=== PATIENT | female | born 1960 | race Caucasian/White ===

== ENCOUNTER 2019-12-20 14:00 | Inpatient (IN) | payer OTHER ==
[~2019-12-20] VITALS: Ht 162.6 cm; Wt 137.8 kg
[~2019-12-20 14:00] MED LIST: ASPI81EC PO; CALCIT950 PO; CHOL10002 PO; FISH1000 PO; MULVITMIND PO; NAPR500 PO; Norco 5-325 Ta1 EACH PO; ZINC15 PO
[2019-12-20 14:15] LABS: BASOPHILS ABSOLUTE AUTO 0.04 K/mm3 (0.00-0.23); BASOPHILS PERCENT AUTO 1 % (0-2); EOSINOPHILS ABSOLUTE AUTO 0.16 K/mm3 (0.00-0.68); EOSINOPHILS PERCENT AUTO 2 % (0-6); Hemoglobin 13.2 g/dL (11.5-16.0); IMMATURE GRAN ABSOLUTE AUTO 0.03 K/mm3 (0.00-0.10); IMMATURE GRAN PERCENT AUTO 0 % (0-1); LYMPHOCYTES ABSOLUTE AUTO 1.83 K/mm3 (0.84-5.20); LYMPHOCYTES PERCENT AUTO 22 % (21-46); MONOCYTES ABSOLUTE AUTO 0.56 K/mm3 (0.16-1.47); MONOCYTES PERCENT AUTO 7 % (4-13); Mean Corpuscular HGB 29.4 pg (26.0-34.0); Mean Corpuscular HGB Conc 31.4 g/dL (31.5-36.5); Mean Corpuscular Volume 94 fL (80-100); Mean Platelet Volume 10.5 fL (9.1-12.4); NEUTROPHILS ABSOLUTE AUTO 5.56 K/mm3 (1.96-9.15); NEUTROPHILS PERCENT AUTO 68 % (41-73); Platelet Count 254 K/mm3 (150-400); RDW Coefficient Variation 12.4 % (11.7-14.2); RDW Standard Deviation 42.5 fL (35.1-46.3); Red Blood Cell Count 4.49 M/mm3 (3.80-5.20); White Blood Cell Count 8.18 K/mm3 (4.00-11.30)
[2019-12-20 14:36] LABS: Alanine Aminotransfer (ALT/SGP 47 U/L (12-78); Albumin, Blood 3.3 g/dL (3.4-5.0); Albumin/Globulin Ratio 0.9 (0.8-1.8); Alk Phos 77 U/L (50-136); Anion Gap 5 mmol/L (6-16); Aspartate Aminotrans (AST/SGOT 40 U/L (12-37); Bilirubin, Total 0.6 mg/dL (0.1-1.0); Blood Urea Nitrogen 12 mg/dL (8-24); Bun/Creatinine Ratio 15.4 (12.0-20.0); CO2, Blood 30 mmol/L (21-32); Calcium, Blood 8.7 mg/dL (8.5-10.1); Chloride, Blood 107 mmol/L (98-108); Creatinine, Blood 0.78 mg/dL (0.40-1.00); Globulin, Blood 3.6 g/dL (2.2-4.0); Glomerular Filtration Rate >60 (60-); Glucose, Blood 98 mg/dL (70-99); Sodium, Blood 142 mmol/L (136-145); Total Protein, Blood 6.9 g/dL (6.4-8.2); Troponin I 0.309 ng/mL (0.000-0.040)
[2019-12-20 15:50] LABS: International Normalized Ratio 1.05; Prothrombin Time Results 11.2 Sec (9.7-11.5)
--- NOTE | 2019-12-20 19:00 | NUR ---
ASSUMED CARE PT TRANSPORTED TO PCU FROM ED, RECEIVED REPORT FROM JODY SANDY. ASSUMED CARE OF PT. SITTING UP ON EDGE OF BED IN NO ACUTE DISTRESS. DENIES CP, PRESSURE, SOB AT THIS TIME. VS STABLE. CALL LIGHT AND POSSESSIONS IN REACH, BED IN LOW POSITION. REMINDED PT TO CALL WITH NEEDS. WILL CONTINUE TO MONITOR.
[2019-12-20] MEDS ORDERED: IBUP400 PO (19:01)
[2019-12-20] MEDS ORDERED: Loratadine10 MG PO (19:01)
[2019-12-21 05:45] LABS: BASOPHILS ABSOLUTE AUTO 0.03 K/mm3 (0.00-0.23); BASOPHILS PERCENT AUTO 0 % (0-2); EOSINOPHILS ABSOLUTE AUTO 0.04 K/mm3 (0.00-0.68); EOSINOPHILS PERCENT AUTO 1 % (0-6); Hematocrit 38.8 % (33.0-51.0); Hemoglobin 12.3 g/dL (11.5-16.0); IMMATURE GRAN ABSOLUTE AUTO 0.03 K/mm3 (0.00-0.10); IMMATURE GRAN PERCENT AUTO 0 % (0-1); LYMPHOCYTES ABSOLUTE AUTO 1.55 K/mm3 (0.84-5.20); LYMPHOCYTES PERCENT AUTO 18 % (21-46); MONOCYTES ABSOLUTE AUTO 0.59 K/mm3 (0.16-1.47); MONOCYTES PERCENT AUTO 7 % (4-13); Mean Corpuscular HGB 29.1 pg (26.0-34.0); Mean Corpuscular HGB Conc 31.7 g/dL (31.5-36.5); Mean Corpuscular Volume 92 fL (80-100); Mean Platelet Volume 10.5 fL (9.1-12.4); NEUTROPHILS ABSOLUTE AUTO 6.43 K/mm3 (1.96-9.15); NEUTROPHILS PERCENT AUTO 74 % (41-73); Platelet Count 236 K/mm3 (150-400); RDW Coefficient Variation 12.5 % (11.7-14.2); Red Blood Cell Count 4.22 M/mm3 (3.80-5.20); White Blood Cell Count 8.67 K/mm3 (4.00-11.30)
[2019-12-21 06:07] LABS: Alanine Aminotransfer (ALT/SGP 41 U/L (12-78); Albumin, Blood 3.3 g/dL (3.4-5.0); Albumin/Globulin Ratio 0.9 (0.8-1.8); Alk Phos 72 U/L (50-136); Anion Gap 6 mmol/L (6-16); Aspartate Aminotrans (AST/SGOT 23 U/L (12-37); Bilirubin, Total 0.9 mg/dL (0.1-1.0); Blood Urea Nitrogen 14 mg/dL (8-24); Bun/Creatinine Ratio 19.5 (12.0-20.0); CHOL/HDL RATIO 2.7; CO2, Blood 28 mmol/L (21-32); Calcium, Blood 8.4 mg/dL (8.5-10.1); Chloride, Blood 105 mmol/L (98-108); Cholesterol 132 mg/dL (50-200); Creatinine, Blood 0.72 mg/dL (0.40-1.00); Globulin, Blood 3.5 g/dL (2.2-4.0); Glomerular Filtration Rate >60 (60-); Glucose, Blood 114 mg/dL (70-99); HDL Cholesterol 49 mg/dL (>39); LDL/HDL RATIO 1.3; Low Density Lipoprotein Chol 63 mg/dL (0-110); Potassium, Blood 3.5 mmol/L (3.5-5.5); Sodium, Blood 139 mmol/L (136-145); Total Protein, Blood 6.8 g/dL (6.4-8.2); Triglycerides 102 mg/dL (30-160); Very Low Density Lipoprot Chol 20 mg/dL (6-32)
--- NOTE | 2019-12-21 07:10 | NUR ---
SHIFT SUMMARY: PT RESTING COMFORTABLY AT THIS TIME, WATCHING TV IN ROOM. WAS MONITORED EVERY 1-2 HOURS WITH NEEDS MET, DENIES ANY NEEDS AT THIS TIME. NO C/O CP, PRESSURE, SOB T/O NIGHT, VS STABLE. CALL LIGHT AND POSSESSIONS IN REACH, REPORT GIVEN TO JODY SANDY.
--- NOTE | 2019-12-21 07:59 | NUR ---
pt laying in bed awake a/ox3, pleasant and cooperative with care, follows commands well, denies any pain, states she never had pain, just sob, ean with activity, lungs are clear a bit dim in bases, resp even and unlabored, is on r/a, no cough noted, hrr, tele in place running sr with bbb, see strip, +1 edema which is down from last night, ppp+2, cap refill <3sec, vs stable, afebrile, iv sites are clear and patent, infusing hep gtt as ordered, btx4, abd flat soft nontender, voids without diff, skin c/w/d, maew, frank, call light in reach.
--- NOTE | 2019-12-21 13:04 | NUR ---
pt will be going to manager cardiac cath this afternoon. lab here to draw ptt. sitting up on side of the bed. call light in reach.
--- NOTE | 2019-12-21 13:12 | NUR ---
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
--- NOTE | 2019-12-21 14:10 | NUR ---
pt returned from labor mediator, arteries are clear, no intervention. tr band to right wrist, site is clear with arm board in place. removed ntg ointment. call light in reach.
--- NOTE | 2019-12-21 16:09 | NUR ---
kathleen johnson, tr band is clear, visitors in room. no complaits, states she feels ok, has been up to the br. call light in reach.
--- NOTE | 2019-12-21 18:03 | NUR ---
tr band is being deflated, no problems, pt doing well, sitting on the side of the bed. vs have been stable. call light in reach.
[2019-12-22 06:38] LABS: BASOPHILS ABSOLUTE AUTO 0.02 K/mm3 (0.00-0.23); BASOPHILS PERCENT AUTO 0 % (0-2); EOSINOPHILS ABSOLUTE AUTO 0.18 K/mm3 (0.00-0.68); EOSINOPHILS PERCENT AUTO 3 % (0-6); Hematocrit 36.5 % (33.0-51.0); Hemoglobin 11.5 g/dL (11.5-16.0); IMMATURE GRAN ABSOLUTE AUTO 0.02 K/mm3 (0.00-0.10); IMMATURE GRAN PERCENT AUTO 0 % (0-1); LYMPHOCYTES ABSOLUTE AUTO 1.81 K/mm3 (0.84-5.20); LYMPHOCYTES PERCENT AUTO 29 % (21-46); MONOCYTES ABSOLUTE AUTO 0.61 K/mm3 (0.16-1.47); MONOCYTES PERCENT AUTO 10 % (4-13); Mean Corpuscular HGB Conc 31.5 g/dL (31.5-36.5); Mean Corpuscular Volume 92 fL (80-100); Mean Platelet Volume 10.9 fL (9.1-12.4); NEUTROPHILS ABSOLUTE AUTO 3.64 K/mm3 (1.96-9.15); NEUTROPHILS PERCENT AUTO 58 % (41-73); Platelet Count 216 K/mm3 (150-400); RDW Coefficient Variation 12.7 % (11.7-14.2); RDW Standard Deviation 43.1 fL (35.1-46.3); Red Blood Cell Count 3.97 M/mm3 (3.80-5.20); White Blood Cell Count 6.28 K/mm3 (4.00-11.30)
[2019-12-22 06:57] LABS: Alanine Aminotransfer (ALT/SGP 29 U/L (12-78); Albumin/Globulin Ratio 0.9 (0.8-1.8); Alk Phos 65 U/L (50-136); Anion Gap 8 mmol/L (6-16); Aspartate Aminotrans (AST/SGOT 13 U/L (12-37); Bilirubin, Total 0.7 mg/dL (0.1-1.0); Blood Urea Nitrogen 16 mg/dL (8-24); Bun/Creatinine Ratio 19.5 (12.0-20.0); CO2, Blood 28 mmol/L (21-32); Calcium, Blood 8.4 mg/dL (8.5-10.1); Chloride, Blood 106 mmol/L (98-108); Creatinine, Blood 0.82 mg/dL (0.40-1.00); Globulin, Blood 3.2 g/dL (2.2-4.0); Glomerular Filtration Rate >60 (60-); Glucose, Blood 103 mg/dL (70-99); Magnesium, Blood 2.1 mg/dL (1.6-2.4); Potassium, Blood 3.5 mmol/L (3.5-5.5); Sodium, Blood 142 mmol/L (136-145); Total Protein, Blood 6.2 g/dL (6.4-8.2)
--- NOTE | 2019-12-22 07:31 | NUR ---
ASSUMED PATIENT CARE. PATIENT SITTING IN BED, CONVERSING COMFORTABLY WITH NURSING STAFF. NO SIGNS OF ACUTE DISTRESS, WCTM.
--- NOTE | 2019-12-22 07:33 | NUR ---
SHIFT SUMMARY PATIENT PLEASENT AND COOPERATIVE THROUGHOUT THE NIGHT. PATIENT'S TR BAND REMOVED AT APPROX 2030 LAST NIGHT. SITE SOFT WITH NO SIGNS OF BLEEDING, BRUISING OR HEMATOMA FORMATION NOTED LAST NIGHT. PATIENT DENIED ANY CHEST PAIN OR SOB LAST NIGHT. PATIENT APPEARED TO SLEEP WELL THROUGHOUT THE NIGHT. BEDSIDE REPORT GIVEN TO WILLIAM VERA.
--- NOTE | 2019-12-22 18:40 | NUR ---
REPORT CALLED TO [facility].
--- NOTE | 2019-12-22 19:15 | NUR ---
PATIENT TRANSFERRED TO RM. [id number].
--- NOTE | 2019-12-23 07:37 | NUR ---
12/23/19 0400 PT AWAKENED FOR AM VITALS. DENIES ANY S/S. RT WRIST SITE BENIGN WITH SPLINT. VITALS STABLE. SELF TO THE BATHROOM TO VOID.
--- NOTE | 2019-12-23 12:34 | NUR ---
SHIFT SUMMARY PT IS A/O X 4 WITH NO C/O PAIN. SHE DENIES AND CHEST PAIN OR SOB. MY HAS BEEN SELF AMBULATING TO THE TOILET. DRESSING REMAINS C.D.I. TO RIGHT WRIST. PLAN IS FOR PT TO STAY ONE MORE NIGHT AND THEN REASSESS IN THE MORNING FOR A POSSIBLE DC TOMORROW. PT IS PLEASANT AND ABLE TO MAKE HER NEEDS KNOWN. SHE CALLS FOR HELP APPROPRIATELY. CALL LIGHT IS IN REACH.
--- NOTE | 2019-12-23 18:14 | NUR ---
NO ACUTE CHANGES SINCE I ASSUMED CARE OF THIS PATIENT AT 1400. NO COMPLAINTS AND VSS
--- NOTE | 2019-12-24 06:23 | NUR ---
Rn summary: Patient remains alert and oriented and independant in room. Plans for discharge today if wt is stable. Pt has had no chest pain this shift. Tele was DC'd yesterday. Heart tones were regular. Breath sounds diminished arron bases otherwise clear. Pt is on room air. Pt does have 1-2 + edema in left lower extremity, pt did have it dependant, dusky in color. Pulses present. Pt has bruising to inner rt wrist from angiogram. AC IV was a little painful, flushed easily with no pain or leaking. Arm elevated on pillow and tylenol 650 mg given for discomfort. Pt felt maybe she had slept on it funny, Pt had good relief with tylenol. Is sleeping well this am. Call ight is in reach. Will continue to monitor.
[2019-12-24 06:33] LABS: Anion Gap 3 mmol/L (6-16); Blood Urea Nitrogen 22 mg/dL (8-24); Bun/Creatinine Ratio 24.1 (12.0-20.0); CO2, Blood 32 mmol/L (21-32); Calcium, Blood 8.9 mg/dL (8.5-10.1); Chloride, Blood 105 mmol/L (98-108); Creatinine, Blood 0.91 mg/dL (0.40-1.00); Glomerular Filtration Rate >60 (60-); Glucose, Blood 106 mg/dL (70-99); Potassium, Blood 4.4 mmol/L (3.5-5.5); Sodium, Blood 140 mmol/L (136-145)
[2019-12-24] MEDS ORDERED: ASPI81CH PO (11:17)
[2019-12-24] MEDS ORDERED: ACET325 PO (11:17)
[2019-12-24] MEDS ORDERED: ATOR80 PO (11:18)
[2019-12-24] MEDS ORDERED: HYDR10 PO (11:18)
[2019-12-24] MEDS ORDERED: LISI5 PO (11:20)
[2019-12-24] MEDS ORDERED: METO25ER PO (11:22)
[2019-12-24] MEDS ORDERED: ONDA4ODT MM (11:23)
[2019-12-24] MEDS ORDERED: Nitrostat0.3 MG SL (11:23)
[2019-12-24] MEDS ORDERED: SPIR25 PO (11:24)
[2019-12-24] MEDS ORDERED: TORSE20 PO (11:26)
--- NOTE | 2019-12-24 13:15 | NUR ---
PT DCD HOME. PT REQUESTED TO MAKE HER FOLLOW UP APPTS. MED REC FAXED TO PHARMACY ON FILE. ALL MEDS AND INSTRUCTIONS REVIEWED WITH PT AND ALL QUESTIONS ANSWERED. IV REMOVED WITH NO ISSUE. ALL PERSONAL BELONGINGS SENT WITH PT. PT STABLE UPON DC.
--- NOTE | 2019-12-24 16:57 | NUR ---
Per admit trigger, I attempted to meet with Heidi to offer information on ACP. She was d/c'd before I could see her.
== END 2019-12-24 13:26 | disposition home or self-care (01) | DRG 280 ==
LOC: ER 14:00 → ERHOLD 15:29 → PCU 15:29 → MEDS 12-22 19:06
PROVIDERS: Emergency Medicine; Hospitalist; Internal Medicine; Nurse Practitioner Acute Care; Pharmacist; ADMIT Internal Medicine
PROC: B211YZZ Fluoroscopy of Multiple Coronary Arteries using Other Contrast (ICD-10-PCS; principal; 2019-12-21)
DX: I21.4 Non-ST elevation (NSTEMI) myocardial infarction (principal); I50.21 Acute systolic (congestive) heart failure; I42.8 Other cardiomyopathies; Z68.43 Body mass index [BMI] 50.0-59.9, adult; E66.01 Morbid (severe) obesity due to excess calories; I11.0 Hypertensive heart disease with heart failure; I50.9 Heart failure, unspecified; F41.9 Anxiety disorder, unspecified; I44.7 Left bundle-branch block, unspecified; I34.0 Nonrheumatic mitral (valve) insufficiency; Z87.891 Personal history of nicotine dependence; Z79.82 Long term (current) use of aspirin
CPT/HCPCS: 36415; 71046; 80048; 80053; 80061; 83036; 83690; 83735; 83880; 84484; 85025; 85610; 85730; 93005; 93010; 93458; 96365; 96366; 96375; 99152; 99285-25; A9270; A9270-GY; C1769; C1894; C8929; J0360; J1644; J1940; J2250; J3010; J7030; Q9957; Q9967

== ENCOUNTER 2021-10-24 00:10 | Emergency (ER) | payer OTHER ==
[~2021-10-24] VITALS: Ht 162.6 cm; Wt 138.3 kg
[~2021-10-24 00:10] MED LIST changes: +ACET325 PO; +ASPI81CH PO; +ATOR80 PO; +HYDR10 PO; +IBUP400 PO; +LISI5 PO; +Loratadine10 MG PO; +METO25ER PO; +Nitrostat0.3 MG SL; +ONDA4ODT MM; +SPIR25 PO; +TORSE20 PO
[2021-10-24 01:11] LABS: BASOPHILS ABSOLUTE AUTO 0.04 K/mm3 (0.00-0.23); BASOPHILS PERCENT AUTO 1 % (0-2); EOSINOPHILS ABSOLUTE AUTO 0.07 K/mm3 (0.00-0.68); EOSINOPHILS PERCENT AUTO 1 % (0-6); Hematocrit 38.4 % (33.0-51.0); Hemoglobin 12.5 g/dL (11.5-16.0); IMMATURE GRAN ABSOLUTE AUTO 0.02 K/mm3 (0.00-0.10); IMMATURE GRAN PERCENT AUTO 0 % (0-1); LYMPHOCYTES PERCENT AUTO 18 % (21-46); MONOCYTES ABSOLUTE AUTO 0.77 K/mm3 (0.16-1.47); MONOCYTES PERCENT AUTO 9 % (4-13); Mean Corpuscular HGB 30.4 pg (26.0-34.0); Mean Corpuscular HGB Conc 32.6 g/dL (31.5-36.5); Mean Corpuscular Volume 93 fL (80-100); Mean Platelet Volume 10.9 fL (9.1-12.4); NEUTROPHILS ABSOLUTE AUTO 6.32 K/mm3 (1.96-9.15); NEUTROPHILS PERCENT AUTO 72 % (41-73); Platelet Count 227 K/mm3 (150-400); RDW Coefficient Variation 11.6 % (11.7-14.2); RDW Standard Deviation 39.8 fL (35.1-46.3); Red Blood Cell Count 4.11 M/mm3 (3.80-5.20); White Blood Cell Count 8.82 K/mm3 (4.00-11.30)
[2021-10-24 01:29] LABS: Albumin, Blood 2.9 g/dL (3.4-5.0); Albumin/Globulin Ratio 0.7 (0.8-1.8); Bilirubin, Total 0.3 mg/dL (0.1-1.0); Bun/Creatinine Ratio 12.5 (12.0-20.0); Calcium, Blood 9.2 mg/dL (8.5-10.1); Creatinine, Blood 1.12 mg/dL (0.40-1.00); Globulin, Blood 3.9 g/dL (2.2-4.0); Potassium, Blood 3.8 mmol/L (3.5-5.5); Total Protein, Blood 6.8 g/dL (6.4-8.2)
[2021-10-24] MEDS ORDERED: Percocet 5-3251 EACH PO (02:11)
== END 2021-10-24 04:10 | disposition home or self-care (01) ==
LOC: ER 00:10
PROVIDERS: Emergency Medicine
DX: M79.671 Pain in right foot (principal); I10 Essential (primary) hypertension; Z88.1 Allergy status to other antibiotic agents; Z79.82 Long term (current) use of aspirin; Z79.899 Other long term (current) drug therapy; Z87.891 Personal history of nicotine dependence
CPT/HCPCS: 73630; 80053; 84145; 85025; 93971; A9270; J1885

== ENCOUNTER 2022-12-18 12:49 | Emergency (ER) | payer OTHER ==
[~2022-12-18] VITALS: Ht 162.6 cm; Wt 136.1 kg
[~2022-12-18 12:49] MED LIST changes: +Percocet 5-3251 EACH PO
[2022-12-18 13:51] LABS: BASOPHILS ABSOLUTE AUTO 0.04 K/mm3 (0.00-0.23); BASOPHILS PERCENT AUTO 0 % (0-2); EOSINOPHILS ABSOLUTE AUTO 0.04 K/mm3 (0.00-0.68); EOSINOPHILS PERCENT AUTO 0 % (0-6); Hematocrit 42.1 % (33.0-51.0); Hemoglobin 13.9 g/dL (11.5-16.0); IMMATURE GRAN ABSOLUTE AUTO 0.05 K/mm3 (0.00-0.10); IMMATURE GRAN PERCENT AUTO 0 % (0-1); LYMPHOCYTES ABSOLUTE AUTO 1.53 K/mm3 (0.84-5.20); LYMPHOCYTES PERCENT AUTO 14 % (21-46); MONOCYTES PERCENT AUTO 11 % (4-13); Mean Corpuscular HGB 30.2 pg (26.0-34.0); Mean Corpuscular Volume 91 fL (80-100); Mean Platelet Volume 10.6 fL (9.1-12.4); NEUTROPHILS ABSOLUTE AUTO 8.36 K/mm3 (1.96-9.15); NEUTROPHILS PERCENT AUTO 75 % (41-73); Platelet Count 292 K/mm3 (150-400); RDW Coefficient Variation 11.9 % (11.7-14.2); Red Blood Cell Count 4.61 M/mm3 (3.80-5.20); White Blood Cell Count 11.22 K/mm3 (4.00-11.30)
[2022-12-18 14:02] LABS: Albumin, Blood 3.4 g/dL (3.4-5.0); Albumin/Globulin Ratio 0.8 (0.8-1.8); Bilirubin, Total 1.1 mg/dL (0.1-1.0); Bun/Creatinine Ratio 17.3 (12.0-20.0); Creatinine, Blood 0.93 mg/dL (0.40-1.00); Globulin, Blood 4.5 g/dL (2.2-4.0); Potassium, Blood 3.7 mmol/L (3.5-5.5); Total Protein, Blood 7.9 g/dL (6.4-8.2)
[2022-12-18] MEDS ORDERED: PRED10 PO (16:49)
[2022-12-18] MEDS ORDERED: OXAYDO5 M1 PO (16:49)
== END 2022-12-18 17:07 | disposition home or self-care (01) ==
LOC: ER 12:49
PROVIDERS: Physician Assistant
DX: M79.671 Pain in right foot (principal); I10 Essential (primary) hypertension; Z88.1 Allergy status to other antibiotic agents; Z79.899 Other long term (current) drug therapy; Z87.891 Personal history of nicotine dependence
CPT/HCPCS: 36415; 80053; 83690; 83880; 84484; 84550; 85025; 85651; 93005; 93010; 93926; 99284-25; A9270; J7512

== ENCOUNTER → 2023-06-15 | Outpatient (CLI) | payer OTHER ==
[~2023-06-15] MED LIST changes: +OXAYDO5 M1 PO; +PRED10 PO
[2023-06-15 16:58] LABS: Alanine Aminotransfer (ALT/SGP 29 U/L (12-78); Albumin, Blood 3.6 g/dL (3.4-5.0); Albumin/Globulin Ratio 0.9 (0.8-1.8); Alk Phos 67 U/L (50-136); Anion Gap 4 mmol/L (6-16); Aspartate Aminotrans (AST/SGOT 17 U/L (12-37); Bilirubin, Total 0.4 mg/dL (0.1-1.0); Blood Urea Nitrogen 19 mg/dL (8-24); Bun/Creatinine Ratio 19.9 (12.0-20.0); CO2, Blood 30 mmol/L (21-32); Calcium, Blood 9.6 mg/dL (8.5-10.1); Chloride, Blood 103 mmol/L (98-108); Cholesterol 201 mg/dL (50-200); Creatinine, Blood 0.96 mg/dL (0.40-1.00); Globulin, Blood 4.1 g/dL (2.2-4.0); Glomerular Filtration Rate 66 (60-); Glucose, Blood 118 mg/dL (70-99); HDL Cholesterol 50 mg/dL (>39); LDL/HDL RATIO 2.2; Low Density Lipoprotein Chol 111 mg/dL (0-110); Sodium, Blood 137 mmol/L (136-145); Total Protein, Blood 7.7 g/dL (6.4-8.2); Triglycerides 199 mg/dL (30-160); Uric Acid, Blood 7.3 mg/dL (2.6-6.0); Very Low Density Lipoprot Chol 39 mg/dL (6-32)
[2023-06-15 17:11] LABS: BASOPHILS ABSOLUTE AUTO 0.06 K/mm3 (0.00-0.23); BASOPHILS PERCENT AUTO 1 % (0-2); EOSINOPHILS ABSOLUTE AUTO 0.14 K/mm3 (0.00-0.68); EOSINOPHILS PERCENT AUTO 2 % (0-6); Hematocrit 40.4 % (33.0-51.0); Hemoglobin 13.1 g/dL (11.5-16.0); IMMATURE GRAN ABSOLUTE AUTO 0.05 K/mm3 (0.00-0.10); IMMATURE GRAN PERCENT AUTO 1 % (0-1); LYMPHOCYTES ABSOLUTE AUTO 2.55 K/mm3 (0.84-5.20); LYMPHOCYTES PERCENT AUTO 34 % (21-46); MONOCYTES ABSOLUTE AUTO 0.53 K/mm3 (0.16-1.47); MONOCYTES PERCENT AUTO 7 % (4-13); Mean Corpuscular HGB 30.5 pg (26.0-34.0); Mean Corpuscular HGB Conc 32.4 g/dL (31.5-36.5); Mean Corpuscular Volume 94 fL (80-100); Mean Platelet Volume 10.8 fL (9.1-12.4); NEUTROPHILS ABSOLUTE AUTO 4.08 K/mm3 (1.96-9.15); NEUTROPHILS PERCENT AUTO 55 % (41-73); Platelet Count 273 K/mm3 (150-400); RDW Coefficient Variation 12.4 % (11.7-14.2); RDW Standard Deviation 42.6 fL (35.1-46.3); Red Blood Cell Count 4.29 M/mm3 (3.80-5.20); White Blood Cell Count 7.41 K/mm3 (4.00-11.30)
== END | disposition home or self-care (01) ==
LOC: LAB SHORT 15:09 → LAB 15:09
PROVIDERS: Family Medicine
DX: I50.9 Heart failure, unspecified (principal)
CPT/HCPCS: 80053; 80061; 83036; 84443; 84550; 85025